=== PATIENT | female | born 1940 | race Caucasian/White ===

== ENCOUNTER 2021-10-17 14:33 | Day surgery (SDCO) | payer MEDICARE, OTHER ==
[~2021-10-17] VITALS: Ht 157.5 cm; Wt 60.5 kg
[~2021-10-17 14:33] MED LIST: B12 ACTIVE1000 MCG PO; CELEXA20 MG PO; COZAAR100 MG PO; ONE DAILY WOME1 EAC2 PO; OS-CAL500 MG PO; PRAVACHOL20 MG PO; PROTONIX 40MG T40 MG PO; SINEMET 25-1001 EAC1 PO; SUPER B COMPLE1 EAC1 PO; VITAMIN D-40010 MCG PO
[2021-10-17 15:38] LABS: BASOPHIL 0.1 % (0-2); EOSINOPHIL 0 % (0-7); HGB 12.5 g/dl (12.5-16.0); INR 1.16 (0.9-1.2); LYMPHOCYTE 88.2 % (15-48); MCH 27.3 pg (25.0-31.0); MCHC 31.3 g/dL (32.0-36.0); MCV 87.3 fL (78.0-100.0); MONOCYTE 1.4 % (0-12); MPV 11.4 fL (6.0-9.5); NEUTROPHIL 10.1 % (41-80); NRBC 0; PLT 219 K/uL (150-400); PROTHROMBIN TIME 14.2 SECONDS (11.8-13.4); PTT 28.6 SECONDS (24.4-34.7); RBC 4.58 M/uL (4.20-5.40); RDW 14.8 % (11.5-14.0)
[2021-10-17 15:39] LABS: WBC 77.7 K/uL (4.0-10.5)
[2021-10-17 15:55] LABS: LACTIC ACID 1.1 mmol/L (0.4-1.9)
[2021-10-17 16:47] LABS: CORONAVIRUS 2019 SARS-COV-2 NEGATIVE (NEGATIVE); INFLUENZA A NAA NEGATIVE (NEGATIVE)
[2021-10-19 01:51] LABS: BILIRUBIN 2+ mg/dL (NEGATIVE); BLOOD 2+ Ery/uL (NEGATIVE); CLARITY CLEAR (CLEAR); COLOR YELLOW (YELLOW); GLUCOSE (U) NORMAL (NORMAL); LEUKOCYTES NEGATIVE Leu/uL (NEGATIVE); NITRITE NEGATIVE (NEGATIVE); PROTEIN NEGATIVE (NEGATIVE); SPECIFIC GRAVITY >=1.030 (1.001-1.030); pH 5.5 (5.0-9.0)
[2021-10-19 02:03] LABS: AMORPHOUS URATES CRYSTALS MODERATE; BACTERIA 1+; MUCOUS MODERATE
[2021-10-19 14:33] LABS: BASOPHIL 0 % (0-2); EOSINOPHIL 0.1 % (0-7); HCT 38.2 % (37.0-47.0); HGB 11.8 g/dl (12.5-16.0); LYMPHOCYTE 92.6 % (15-48); MCH 27.2 pg (25.0-31.0); MCHC 30.9 g/dL (32.0-36.0); MPV 10.8 fL (6.0-9.5); NEUTROPHIL 6.2 % (41-80); NRBC 0; PLT 214 K/uL (150-400); RBC 4.34 M/uL (4.20-5.40); RDW 14.7 % (11.5-14.0)
[2021-10-19 14:39] LABS: ALBUMIN 3.4 g/dL (3.4-5.0); BILIRUBIN - TOTAL 0.9 mg/dL (0.2-1.0); BUN/CREAT RATIO (CALC) 27.8 RATIO; CREATININE 0.72 mg/dL (0.51-0.95); GLOBULIN (CALCULATION) 3.2 g/dL; POTASSIUM 3.7 mmol/L (3.5-5.1); TOTAL PROTEIN 6.6 g/dL (6.4-8.2)
[2021-10-19 15:12] LABS: WBC 62.5 K/uL (4.0-10.5)
[2021-10-19] MEDS ORDERED: LEXAPRO20 MG PO (18:27)
[2021-10-19] MEDS ORDERED: NORVASC5 MG PO (18:27)
[2021-10-19] MEDS ORDERED: PRAVACHOL20 MG PO (18:28)
[2021-10-19] MEDS ORDERED: PROTONIX 40MG T40 MG PO (18:28)
[2021-10-19] MEDS ORDERED: CARBIDOPA-LEVO1 EAC6 PO (18:29)
[2021-10-19 18:51] LABS: BILIRUBIN 1+ mg/dL (NEGATIVE); BLOOD 2+ Ery/uL (NEGATIVE); COLOR YELLOW (YELLOW); GLUCOSE (U) NORMAL (NORMAL); LEUKOCYTES NEGATIVE Leu/uL (NEGATIVE); NITRITE NEGATIVE (NEGATIVE); PROTEIN NEGATIVE (NEGATIVE); SPECIFIC GRAVITY >=1.030 (1.001-1.030)
[2021-10-19 18:53] LABS: CLARITY SLIGHTLY HAZY (CLEAR)
[2021-10-19 18:58] LABS: BACTERIA 1+; URINARY WBC RARE
--- NOTE | 2021-10-20 05:57 | NUR ---
LBM 10/14, SMALL/HARD PER PT. PT REPORTS THAT SHE STRUGGLES WITH CONSTIPATION REGULARLY.
[2021-10-20 05:58] LABS: BASOPHIL 0.1 % (0-2); EOSINOPHIL 0.1 % (0-7); HCT 35.8 % (37.0-47.0); HGB 11.2 g/dl (12.5-16.0); MCH 27.7 pg (25.0-31.0); MCHC 31.3 g/dL (32.0-36.0); MCV 88.6 fL (78.0-100.0); MONOCYTE 1.5 % (0-12); MPV 10.6 fL (6.0-9.5); NEUTROPHIL 5.2 % (41-80); NRBC 0; PLT 201 K/uL (150-400); RBC 4.04 M/uL (4.20-5.40); RDW 14.7 % (11.5-14.0)
[2021-10-20 06:13] LABS: IRON % SATURATION 8.9 %SAT (20-50)
[2021-10-20 06:17] LABS: WBC 53.7 K/uL (4.0-10.5)
[2021-10-20 07:17] LABS: BUN 27 mg/dL (7-18); BUN/CREAT RATIO (CALC) 33.3 RATIO; CHLORIDE 104 mmol/L (98-107); CO2 (BICARBONATE) 27 mmol/L (21-32); CREATININE 0.81 mg/dL (0.51-0.95); GLUCOSE 122 mg/dL (74-106); POTASSIUM 3.7 mmol/L (3.5-5.1)
[2021-10-20] MEDS ORDERED: FEOSOL325 MG PO (12:58)
[2021-10-20] MEDS ORDERED: FOLIC ACID1 MG PO (12:58)
[2021-10-20] MEDS ORDERED: SENNA8.6 MG PO (13:51)
[2021-10-20] MEDS ORDERED: MIRALAX17 GM PO (13:51)
== END 2021-10-20 17:43 | disposition home health service (06) ==
LOC: FER 14:33 → FMS 10-19 15:21
PROVIDERS: Emergency Medicine; Internal Medicine; ADMIT Family Medicine
DX: K31.9 Disease of stomach and duodenum, unspecified (principal); K31.7 Polyp of stomach and duodenum; K44.9 Diaphragmatic hernia without obstruction or gangrene; R07.89 Other chest pain; K22.89 Other specified disease of esophagus; D50.9 Iron deficiency anemia, unspecified; G20 Parkinson's disease; K21.9 Gastro-esophageal reflux disease without esophagitis; R05.9 Cough, unspecified; R50.9 Fever, unspecified; R61 Generalized hyperhidrosis; R06.00 Dyspnea, unspecified; R14.2 Eructation; R12 Heartburn; I10 Essential (primary) hypertension; E78.5 Hyperlipidemia, unspecified; Z88.1 Allergy status to other antibiotic agents; Z85.6 Personal history of leukemia; Z90.49 Acquired absence of other specified parts of digestive tract; Z90.710 Acquired absence of both cervix and uterus; Z20.822 Contact with and (suspected) exposure to COVID-19
CPT/HCPCS: 36415; 71250; 72128; 80048; 80053; 81001; 82550; 82607; 83540; 83550; 83605; 83735; 83880; 84145; 84484; 85025; 85379; 85610; 85730; 87088; 93005; 97162; 97166; 97530; 97530-GP; G0378; J1650; J2704; J2916; J7120; U0002

== ENCOUNTER 2022-01-28 13:12 | Inpatient (IN) | payer MEDICARE, OTHER ==
[~2022-01-28] VITALS: Ht 154.9 cm; Wt 58.2 kg
[~2022-01-28 13:12] MED LIST changes: +CARBIDOPA-LEVO1 EAC6 PO; +FEOSOL325 MG PO; +FOLIC ACID1 MG PO; +LEXAPRO20 MG PO; +MIRALAX17 GM PO; +NORVASC5 MG PO; +SENNA8.6 MG PO
[2022-01-28 15:21] LABS: ALBUMIN 4.3 g/dL (3.4-5.0); BILIRUBIN - TOTAL 0.6 mg/dL (0.2-1.0); BUN/CREAT RATIO (CALC) 21.5 RATIO; CREATININE 0.93 mg/dL (0.51-0.95); GLOBULIN (CALCULATION) 2.6 g/dL; POTASSIUM 4.5 mmol/L (3.5-5.1); TOTAL PROTEIN 6.9 g/dL (6.4-8.2)
[2022-01-28 15:24] LABS: LACTIC ACID 1.1 mmol/L (0.4-1.9)
[2022-01-28 15:30] LABS: BASOPHIL 0.1 % (0-2); EOSINOPHIL 0.2 % (0-7); HCT 45.7 % (37.0-47.0); LYMPHOCYTE 92.3 % (15-48); MCH 28.2 pg (25.0-31.0); MCHC 30.6 g/dL (32.0-36.0); MCV 92.1 fL (78.0-100.0); MPV 11.4 fL (6.0-9.5); NEUTROPHIL 6.2 % (41-80); NRBC 0; PLT 213 K/uL (150-400); RBC 4.96 M/uL (4.20-5.40); RDW 14.9 % (11.5-14.0)
[2022-01-28 15:43] LABS: WBC 73.2 K/uL (4.0-10.5)
[2022-01-28] MEDS ORDERED: CARBIDOPA-LEVO1 EAC6 PO (20:13)
[2022-01-28] MEDS ORDERED: CARBIDOPA-LEVO1 EAC3 PO (20:14)
[2022-01-28] MEDS ORDERED: VITAMIN B-121000 MC1 PO (20:21)
[2022-01-28] MEDS ORDERED: CITRACAL + D E1 EACH PO (20:21)
[2022-01-28] MEDS ORDERED: ASPIRIN EC81 MG PO (20:22)
[2022-01-28 23:54] LABS: BILIRUBIN NEGATIVE (NEGATIVE); BLOOD TRACE-LYSED Ery/uL (NEGATIVE); CLARITY CLEAR (CLEAR); COLOR YELLOW (YELLOW); GLUCOSE (U) NORMAL (NORMAL); LEUKOCYTES NEGATIVE Leu/uL (NEGATIVE); NITRITE NEGATIVE (NEGATIVE); PROTEIN NEGATIVE (NEGATIVE); SPECIFIC GRAVITY 1.015 (1.001-1.030); UROBILINOGEN 0.2 mg/dL (0.2-1.0)
[2022-01-29 00:07] LABS: BACTERIA TRACE; URINARY RBC RARE; URINARY WBC RARE
[2022-01-29 06:22] LABS: BASOPHIL 0.2 % (0-2); EOSINOPHIL 0.3 % (0-7); HCT 34.6 % (37.0-47.0); HGB 10.7 g/dl (12.5-16.0); LYMPHOCYTE 93.2 % (15-48); MCH 28.5 pg (25.0-31.0); MCHC 30.9 g/dL (32.0-36.0); MCV 92.3 fL (78.0-100.0); MONOCYTE 1.4 % (0-12); MPV 11.1 fL (6.0-9.5); NEUTROPHIL 4.8 % (41-80); NRBC 0; PLT 143 K/uL (150-400); RBC 3.75 M/uL (4.20-5.40); RDW 14.7 % (11.5-14.0)
[2022-01-29 06:25] LABS: WBC 39.2 K/uL (4.0-10.5)
[2022-01-29 06:47] LABS: BUN/CREAT RATIO (CALC) 18.4 RATIO; CREATININE 0.76 mg/dL (0.51-0.95); MAGNESIUM 1.5 mg/dL (1.8-2.4); POTASSIUM 3.8 mmol/L (3.5-5.1)
[2022-01-29] MEDS ORDERED: LEVAQUIN500 MG PO (11:30)
== END 2022-01-29 13:00 | disposition home or self-care (01) | DRG 392 ==
LOC: FER 13:12 → FMS 17:42
PROVIDERS: Physician Assistant; ADMIT Internal Medicine
DX: K52.9 Noninfective gastroenteritis and colitis, unspecified (principal); C95.10 Chronic leukemia of unspecified cell type not having achieved remission; G20 Parkinson's disease; Z20.822 Contact with and (suspected) exposure to COVID-19; I10 Essential (primary) hypertension; K21.9 Gastro-esophageal reflux disease without esophagitis; E53.8 Deficiency of other specified B group vitamins; E78.5 Hyperlipidemia, unspecified; K44.9 Diaphragmatic hernia without obstruction or gangrene; E86.0 Dehydration; E83.42 Hypomagnesemia; D63.0 Anemia in neoplastic disease; Z90.49 Acquired absence of other specified parts of digestive tract; Z90.710 Acquired absence of both cervix and uterus; Z80.6 Family history of leukemia; Z83.3 Family history of diabetes mellitus; Z79.899 Other long term (current) drug therapy; Z79.82 Long term (current) use of aspirin; Z88.2 Allergy status to sulfonamides; Z88.1 Allergy status to other antibiotic agents
CPT/HCPCS: 36415; 80048; 80053; 81001; 83605; 83735; 84145; 85025; J1650; J1956; J3475; J7030; Q9967; U0002